=== PATIENT | female | born 1955 | race Caucasian/White ===

== ENCOUNTER 2022-09-06 11:34 | Inpatient (IN) | payer MEDICARE ==
[2022-09-06 13:01] LABS: Basophils % (A) 0 %; Eosinophils # (A) 0.1 k/uL (0-0.7); Eosinophils % (A) 1 %; HCT 36.1 % (34.0-46.0); Lymphocytes # (A) 0.9 k/uL (1.0-4.8); Lymphocytes % (A) 9 %; MCH 31.7 pg (25.0-35.0); MCHC 33.2 g/dL (31.0-37.0); MCV 95.7 fL (80.0-100.0); Mean Platelet Volume 8.1; Monocytes # (A) 0.3 k/uL (0-1.0); Monocytes % (A) 3 %; Neutrophils # (A) 8.4 k/uL (1.3-7.7); Neutrophils % (A) 86 %; Platelet Count 357 k/uL (150-450); RBC 3.77 m/uL (3.80-5.40); RDW 13.1 % (11.5-15.5); WBC 9.9 k/uL (3.8-10.6)
[2022-09-06 13:13] LABS: Albumin 4.5 g/dL (3.5-5.0); Calcium 10.2 mg/dL (8.4-10.2); Potassium 5.3 mmol/L (3.5-5.1); Total Bilirubin 0.8 mg/dL (0.2-1.3); Total Protein 7.7 g/dL (6.3-8.2)
[2022-09-06] MEDS ORDERED: ONDANSETRON 4 MG/2 ML VIAL IVP STA (13:26)
[2022-09-06] MEDS ORDERED: SODIUM CHLORIDE 0.9% 1,000 ML IV STA (13:26)
--- NOTE | 2022-09-06 13:30 | ED ---
General Adult HPI - General Chief complaint: Recheck/Abnormal Lab/Rx Stated complaint: Abnormal Labs,Sent by PCP Time Seen by Provider: 09/06/22 13:12 Source: patient Mode of arrival: wheelchair Limitations: no limitations - History of Present Illness Initial comments: Dictation was produced using [employer] dictation software. please excuse any gramma tical, word or spelling errors. Chief Complaint: 66-year-old female presents emergency department for nausea vomiting and waves of abdominal pain History of Present Illness: Patient is 66-year-old female one month ago she had cold and flulike symptoms causing nausea and vomiting her symptoms improve over the course of several days. Over the last 7 days she states that her symptoms recurred seems like it's worse than initially. She does get waves of severe periumbilical abdominal pain. She has been having dry heaving. She has not been or drinking approximately one week. Patient has history of section. No history of any other abdominal surgeries. She has history of hypertension and thyroid disease. Patient denies any fevers. Denies any diarrhea. States that her emesis is nonbloody and non-bilious. She has a history of chronic back pain. She only has abdominal pain while retching. She denies any abdominal pain at bedside. Patient had blood work drawn 2 days ago by her primary care doctor. Apparently there has been significant abnormalities prompting them to instructed to come to the emergency room. The ROS documented in this emergency department record has been reviewed and confirmed by me. Those systems with pertinent positive or negative responses have been documented in the HPI. All other systems are other negative and/or noncontributory. PHYSICAL EXAM: General Impression: Alert and oriented x3, nauseated HEENT: Normocephalic atraumatic, extra-ocular movements intact, pupils equal and reactive to light bilaterally, mucous membranes moist. Cardiovascular: Heart regular rate and rhythm Chest: Able to complete full sentences, no retractions, no tachypnea Abdomen: abdomen soft, non-tender, non-distended, no organomegaly Musculoskeletal: Pulses present and equal in all extremities, no peripheral edema Motor: no focal deficits noted Neurological: CN II-XII grossly intact, no focal motor or sensory deficits noted Skin: Intact with no visualized rashes Psych: Normal affect and mood ED course: 66-year-old female presents emergency department for nausea, vomiting and abdominal pain. Signs upon arrival shows heart rate 114, rest vital signs within acceptable limits. Patient allegedly had blood work drawn 2 days ago by primary care doctor. Chart review does not show the results of these. According to daughter at the bedside the results are being faxed to our emergency room. Nursing notes and chart review was performed Laboratory evaluation obtained. CBC unremarkable. Metabolic panel shows findings of significantly elevated renal markers. Patient positive for coronavirus. X-ray of the abdomen interpreted by me showing ileus versus enteritis Unclear how long patient's been symptomatic. No indication for antibiotic administration at this time. Patient given IV fluids will be admitted for acute kidney injury. - Related Data Home Medications Medication Instructions Recorded Confirmed HYDROcodone/APAP 10-325MG [[place] 1 tab PO TID 09/06/22 09/06/22 10-325] Levothyroxine Sodium [Synthroid] 112 mcg PO DAILY 09/06/22 09/06/22 Meloxicam [Mobic] 15 mg PO DAILY 09/06/22 09/06/22 Multivitamins, Thera [Multivitamin 1 tab PO DAILY 09/06/22 09/06/22 (formulary)] Ondansetron Odt [Zofran Odt] 4 mg PO Q4H PRN 09/06/22 09/06/22 Triamterene-Hctz 37.5-25Mg 1 cap PO DAILY 09/06/22 09/06/22 [Dyazide 37.5-25 Capsule] lisinopriL [Prinivil] 10 mg PO DAILY 09/06/22 09/06/22 lysine HCL [l-Lysine] 1,000 mg PO DAILY 09/06/22 09/06/22 tiZANidine [Zanaflex] 4 mg PO TID PRN 09/06/22 09/06/22 Allergies Allergy/AdvReac Type Severity Reaction Status Date / Time codeine Allergy Abdominal Verified 09/06/22 14:43 Pain sulfamethoxazole Allergy Rash/Hives Verified 09/06/22 14:43 [From Bactrim] trimethoprim [From Bactrim] Allergy Rash/Hives Verified 09/06/22 14:43 Review of Systems ROS Statement: Those systems with pertinent positive or pertinent negative responses have been documented in the HPI. ROS Other: All systems not noted in ROS Statement are negative. Past Medical History Past Medical History: Hypertension, Osteoarthritis (OA), Thyroid Disorder Additional Past Medical History / Comment(s): chronic back pain History of Any Multi-Drug Resistant Organisms: None Reported Past Surgical History: Section, Orthopedic Surgery Additional Past Surgical History / Comment(s): left knee repair; thyroid removed Past Psychological History: No Psychological Hx Reported Smoking Status: Never smoker Past Alcohol Use History: None Reported Past Drug Use History: None Reported General Exam Limitations: no limitations Course Vital Signs 09/06/22 11:56 Temperature 98.1 F Pulse Rate 114 H Respiratory 14 Rate Blood Pressure 107/55 O2 Sat by Pulse 96 Oximetry Medical Decision Making - Lab Data Result diagrams: 09/06/22 13:24 09/06/22 13:24 Lab Results 09/06/22 09/06/22 09/06/22 Range/Units 12:53 12:53 13:24 WBC 9.9 10.3 (3.8-10.6) k/uL RBC 3.77 L 3.80 (3.80-5.40) m/uL Hgb 12.0 12.1 (11.4-16.0) gm/dL Hct 36.1 36.5 (34.0-46.0) % MCV 95.7 95.8 (80.0-100.0) fL MCH 31.7 31.7 (25.0-35.0) pg MCHC 33.2 33.1 (31.0-37.0) g/dL RDW 13.1 12.8 (11.5-15.5) % Plt Count 357 390 (150-450) k/uL MPV 8.1 7.5 Neutrophils % 86 83 % Lymphocytes % 9 12 % Monocytes % 3 3 % Eosinophils % 1 0 % Basophils % 0 0 % Neutrophils # 8.4 H 8.5 H (1.3-7.7) k/uL Lymphocytes # 0.9 L 1.3 (1.0-4.8) k/uL Monocytes # 0.3 0.3 (0-1.0) k/uL Eosinophils # 0.1 0.0 (0-0.7) k/uL Basophils # 0.0 0.0 (0-0.2) k/uL PT (9.0-12.0) sec INR (<1.2) APTT (22.0-30.0) sec Sodium 141 (137-145) mmol/L Potassium 5.3 H (3.5-5.1) mmol/L Chloride 104 (98-107) mmol/L Carbon Dioxide 17 L (22-30) mmol/L Anion Gap 20 mmol/L BUN 83 H (7-17) mg/dL Creatinine 3.32 H (0.52-1.04) mg/dL Est GFR (CKD-EPI)AfAm 16 (>60 ml/min/1.73 sqM) Est GFR (CKD-EPI)NonAf 14 (>60 ml/min/1.73 sqM) Glucose 101 H (74-99) mg/dL Plasma Lactic Acid Angelito (0.7-2.0) mmol/L Calcium 10.2 (8.4-10.2) mg/dL Magnesium (1.6-2.3) mg/dL Total Bilirubin 0.8 (0.2-1.3) mg/dL AST 20 (14-36) U/L ALT 12 (4-34) U/L Alkaline Phosphatase 166 H (38-126) U/L Total Protein 7.7 (6.3-8.2) g/dL Albumin 4.5 (3.5-5.0) g/dL Amylase 96 (30-110) U/L Lipase 350 H (23-300) U/L Influenza Type A (PCR) (Not Detectd) Influenza Type B (PCR) (Not Detectd) RSV (PCR) (Not Detectd) SARS-CoV-2 (PCR) (Not Detectd) 09/06/22 09/06/22 09/06/22 Range/Units 13:24 13:39 13:39 WBC (3.8-10.6) k/uL RBC (3.80-5.40) m/uL Hgb (11.4-16.0) gm/dL Hct (34.0-46.0) % MCV (80.0-100.0) fL MCH (25.0-35.0) pg MCHC (31.0-37.0) g/dL RDW (11.5-15.5) % Plt Count (150-450) k/uL MPV Neutrophils % % Lymphocytes % % Monocytes % % Eosinophils % % Basophils % % Neutrophils # (1.3-7.7) k/uL Lymphocytes # (1.0-4.8) k/uL Monocytes # (0-1.0) k/uL Eosinophils # (0-0.7) k/uL Basophils # (0-0.2) k/uL PT 10.8 (9.0-12.0) sec INR 1.0 (<1.2) APTT 23.1 (22.0-30.0) sec Sodium 140 (137-145) mmol/L Potassium 5.2 H (3.5-5.1) mmol/L Chloride 104 (98-107) mmol/L Carbon Dioxide 16 L (22-30) mmol/L Anion Gap 20 mmol/L BUN 83 H (7-17) mg/dL Creatinine 3.40 H (0.52-1.04) mg/dL Est GFR (CKD-EPI)AfAm 15 (>60 ml/min/1.73 sqM) Est GFR (CKD-EPI)NonAf 13 (>60 ml/min/1.73 sqM) Glucose 106 H (74-99) mg/dL Plasma Lactic Acid Angelito 1.4 (0.7-2.0) mmol/L Calcium 10.1 (8.4-10.2) mg/dL Magnesium 2.3 (1.6-2.3) mg/dL Total Bilirubin 0.7 (0.2-1.3) mg/dL AST 19 (14-36) U/L ALT 12 (4-34) U/L Alkaline Phosphatase 161 H (38-126) U/L Total Protein 7.5 (6.3-8.2) g/dL Albumin 4.3 (3.5-5.0) g/dL Amylase (30-110) U/L Lipase (23-300) U/L Influenza Type A (PCR) (Not Detectd) Influenza Type B (PCR) (Not Detectd) RSV (PCR) (Not Detectd) SARS-CoV-2 (PCR) (Not Detectd) 09/06/22 Range/Units 13:39 WBC (3.8-10.6) k/uL RBC (3.80-5.40) m/uL Hgb (11.4-16.0) gm/dL Hct (34.0-46.0) % MCV (80.0-100.0) fL MCH (25.0-35.0) pg MCHC (31.0-37.0) g/dL RDW (11.5-15.5) % Plt Count (150-450) k/uL MPV Neutrophils % % Lymphocytes % % Monocytes % % Eosinophils % % Basophils % % Neutrophils # (1.3-7.7) k/uL Lymphocytes # (1.0-4.8) k/uL Monocytes # (0-1.0) k/uL Eosinophils # (0-0.7) k/uL Basophils # (0-0.2) k/uL PT (9.0-12.0) sec INR (<1.2) APTT (22.0-30.0) sec Sodium (137-145) mmol/L Potassium (3.5-5.1) mmol/L Chloride (98-107) mmol/L Carbon Dioxide (22-30) mmol/L Anion Gap mmol/L BUN (7-17) mg/dL Creatinine (0.52-1.04) mg/dL Est GFR (CKD-EPI)AfAm (>60 ml/min/1.73 sqM) Est GFR (CKD-EPI)NonAf (>60 ml/min/1.73 sqM) Glucose (74-99) mg/dL Plasma Lactic Acid Angelito (0.7-2.0) mmol/L Calcium (8.4-10.2) mg/dL Magnesium (1.6-2.3) mg/dL Total Bilirubin (0.2-1.3) mg/dL AST (14-36) U/L ALT (4-34) U/L Alkaline Phosphatase (38-126) U/L Total Protein (6.3-8.2) g/dL Albumin (3.5-5.0) g/dL Amylase (30-110) U/L Lipase (23-300) U/L Influenza Type A (PCR) Not Detected (Not Detectd) Influenza Type B (PCR) Not Detected (Not Detectd) RSV (PCR) Not Detected (Not Detectd) SARS-CoV-2 (PCR) Detected A (Not Detectd) Disposition Clinical Impression: DORI (acute kidney injury), Coronavirus infection Disposition: ADMITTED IP TO THIS HOSP Condition: Fair Referrals: Nonstaff,Physician [REFERRING] - 1-2 days Decision Time: 14:57
[2022-09-06 13:48] LABS: Basophils % (A) 0 %; Eosinophils % (A) 0 %; HCT 36.5 % (34.0-46.0); HGB 12.1 gm/dL (11.4-16.0); Lymphocytes # (A) 1.3 k/uL (1.0-4.8); Lymphocytes % (A) 12 %; MCH 31.7 pg (25.0-35.0); MCHC 33.1 g/dL (31.0-37.0); MCV 95.8 fL (80.0-100.0); Mean Platelet Volume 7.5; Monocytes # (A) 0.3 k/uL (0-1.0); Monocytes % (A) 3 %; Neutrophils # (A) 8.5 k/uL (1.3-7.7); Neutrophils % (A) 83 %; Platelet Count 390 k/uL (150-450); RDW 12.8 % (11.5-15.5); WBC 10.3 k/uL (3.8-10.6)
[2022-09-06 14:00] LABS: Partial Thromboplastin Time 23.1 sec (22.0-30.0); Prothrombin Time 10.8 sec (9.0-12.0)
--- NOTE | 2022-09-06 14:07 | XR ---
EXAMINATION TYPE: XR abdomen 1V DATE OF EXAM: 09/06/2022 COMPARISON: NONE HISTORY: Abdominal pain TECHNIQUE: One view abdominal series FINDINGS: The osseous structures are intact. The bowel gas pattern is nonspecific. Lung bases are clear. Scol iosis with degenerative and hypertrophic changes. Severe arthropathy bilateral hip correlation for fe moral acetabular impingement. Few prominent small bowel loops are seen in the midabdomen. IMPRESSION: 1. Nonspecific abdomen. Couple prominent small bowel loops with air-fluid level midabdomen can be as sociated with an ileus or enteritis correlate clinically.
[2022-09-06 14:33] LABS: Albumin 4.3 g/dL (3.5-5.0); Calcium 10.1 mg/dL (8.4-10.2); Magnesium 2.3 mg/dL (1.6-2.3); Potassium 5.2 mmol/L (3.5-5.1); Total Bilirubin 0.7 mg/dL (0.2-1.3); Total Protein 7.5 g/dL (6.3-8.2)
[2022-09-06] MEDS ORDERED: NALOXONE 0.4 MG/ML 1 ML VIAL IV PRN (14:57)
[2022-09-06] MEDS ORDERED: ACETAMINOPHEN TAB 325 MG TAB PO PRN (14:57)
[2022-09-06] MEDS ORDERED: CALCIUM CARBONATE 500 MG CHEWABLE PO PRN (18:30)
[2022-09-06] MEDS: SODIUM CHLORIDE 0.9% 1,000 ML IV SCH ×2 (18:53→20:48)
[2022-09-06] MEDS: ONDANSETRON ODT 4 MG TAB PO PRN (19:13)
[2022-09-06] MEDS: HYDROcodone/APAP 10-325MG 1 EACH TAB PO SCH (19:14)
[2022-09-06] MEDS ORDERED: HYDROmorphone 0.5 MG/0.5 ML SYRINGE IVP PRN (19:17)
[2022-09-06] MEDS: tiZANidine 4 MG TAB PO PRN (20:48)
--- NOTE | 2022-09-06 22:48 | P.HPIM ---
History of Present Illness H&P Date: 09/06/22 Chief Complaint: Weak This is a pleasant 66-year-old patient who follows with Dr. Oliva chronic stable medical conditions include hypertension, osteoporosis, low back pain, hypothyroid. About 3 weeks ago patient and her both had flu. She normally takes a bit longer to cover. She called back to normal. He started eating better. About 10 days ago she started getting nauseated did have a big part of vomiting. He progressively got able to keep anything down. Becoming weak diet rather exhausted. Finally decided to come in. Had blood work done at her PCPs office. Kidney function was off. No fever no chills. Review of systems: GEN.: Tired weak decreased appetite EYES: None HEENT: None NECK: None RESPIRATORY: None CARDIOVASCULAR: None GASTROINTESTINAL: As above GENITOURINARY: None MUSCULOSKELETAL: Back pain LYMPHATICS: None HEMATOLOGICAL: None PSYCHIATRY: None NEUROLOGICAL: None Past medical history to include: Hypertension, osteomyelitis, hypothyroid, low back pain Social history: No smoking or alcohol. . Family history: Reviewed, noncontributory to presentation Physical examination: VITAL SIGNS: 37.5, 114, 18, 110/63, 100% room air GENERAL: BMI 43.8, declining bed, awake, tired. EYES: Pupils equal. Conjunctiva normal. HEENT: External appearance of nose and ears normal, oral cavity grossly normal. NECK: JVD not raised; masses not palpable. HEART: First and second heart sounds are normal; no edema. LUNGS: Respiratory rate normal; clear to auscultation. ABDOMEN: Soft, nontender, liver spleen not palpable, no masses palpable. PSYCH: Alert and oriented x3; mood and affect normal. MUSCULOSKELETAL:No Clubbing/cyanosis;muscles-grossly intact. OA NEUROLOGICAL: Cranial nerves grossly intact; no facial asymmetry, power and sensation grossly intact. LYMPHATICS: No lymph nodes palpable in the axilla and neck INVESTIGATIONS, reviewed in the clinical context: White count 10.3 hemoglobin 12.1 platelets 390 potassium 5.2 BUN 83 creatinine 3.4 COVID 19 PCR: Detected Abdominal x-ray: Nonspecific abdomen. Assessment plan: -Acute kidney injury, likely ATN/prerenal from recent infections and decreased oral intake. IV fluids. -Metabolic acidosis from kidney injury Sodium bicarbonate by mouth -Persistent nausea likely from acute kidney injury -Morbid obesity BMI 43.8 Weight loss measures -Essential hypertension, currently blood pressure lower side. Hold Prinivil. Hold diuretics. -Hypothyroid Synthroid 112 g -Primary osteomyelitis multiple joints Currently patient not able to keep down her [place]. Use Dilaudid when necessary. IV fluids. Sodium bicarbonate. Subcu Lovenox. UA. Renal ultrasound. Full liquid diet/renal diet. Repeat labs in the morning. Discussed with patient. Past Medical History Past Medical History: Hypertension, Osteoarthritis (OA), Thyroid Disorder Additional Past Medical History / Comment(s): chronic back pain History of Any Multi-Drug Resistant Organisms: None Reported Past Surgical History: Section, Orthopedic Surgery Additional Past Surgical History / Comment(s): left knee repair; thyroid removed Past Psychological History: No Psychological Hx Reported Smoking Status: Never smoker Past Alcohol Use History: None Reported Past Drug Use History: None Reported - Past Family History Father Family Medical History: No Reported History Medications and Allergies Home Medications Medication Instructions Recorded Confirmed Type HYDROcodone/APAP 10-325MG [[place] 1 tab PO TID 09/06/22 09/06/22 History 10-325] Levothyroxine Sodium [Synthroid] 112 mcg PO DAILY 09/06/22 09/06/22 History Meloxicam [Mobic] 15 mg PO DAILY 09/06/22 09/06/22 History Multivitamins, Thera [Multivitamin 1 tab PO DAILY 09/06/22 09/06/22 History (formulary)] Ondansetron Odt [Zofran Odt] 4 mg PO Q4H PRN 09/06/22 09/06/22 History Triamterene-Hctz 37.5-25Mg 1 cap PO DAILY 09/06/22 09/06/22 History [Dyazide 37.5-25 Capsule] lisinopriL [Prinivil] 10 mg PO DAILY 09/06/22 09/06/22 History lysine HCL [l-Lysine] 1,000 mg PO DAILY 09/06/22 09/06/22 History tiZANidine [Zanaflex] 4 mg PO TID PRN 09/06/22 09/06/22 History Allergies Allergy/AdvReac Type Severity Reaction Status Date / Time codeine Allergy Abdominal Verified 09/06/22 14:43 Pain sulfamethoxazole Allergy Rash/Hives Verified 09/06/22 14:43 [From Bactrim] trimethoprim [From Bactrim] Allergy Rash/Hives Verified 09/06/22 14:43 Physical Exam Vitals: Vital Signs Temp Pulse Pulse Resp BP BP Pulse Ox 09/06/22 19:50 98.1 F 107 H 16 108/62 95 09/06/22 18:19 97.5 F L 104 H 18 110/63 100 09/06/22 17:39 103 H 18 133/50 97 09/06/22 11:56 98.1 F 114 H 14 107/55 96 Intake and Output 09/06/22 09/06/22 09/06/22 06:59 14:59 22:59 Other: Weight 112.037 kg 112.037 kg Results CBC & Chem 7: 09/06/22 13:24 09/06/22 13:24 Labs: Abnormal Lab Results - Last 24 Hours (Table) 09/06/22 09/06/22 09/06/22 Range/Units 12:53 12:53 13:24 RBC 3.77 L (3.80-5.40) m/uL Neutrophils # 8.4 H 8.5 H (1.3-7.7) k/uL Lymphocytes # 0.9 L (1.0-4.8) k/uL Potassium 5.3 H (3.5-5.1) mmol/L Carbon Dioxide 17 L (22-30) mmol/L BUN 83 H (7-17) mg/dL Creatinine 3.32 H (0.52-1.04) mg/dL Glucose 101 H (74-99) mg/dL Alkaline Phosphatase 166 H (38-126) U/L Lipase 350 H (23-300) U/L SARS-CoV-2 (PCR) (Not Detectd) 09/06/22 09/06/22 Range/Units 13:24 13:39 RBC (3.80-5.40) m/uL Neutrophils # (1.3-7.7) k/uL Lymphocytes # (1.0-4.8) k/uL Potassium 5.2 H (3.5-5.1) mmol/L Carbon Dioxide 16 L (22-30) mmol/L BUN 83 H (7-17) mg/dL Creatinine 3.40 H (0.52-1.04) mg/dL Glucose 106 H (74-99) mg/dL Alkaline Phosphatase 161 H (38-126) U/L Lipase (23-300) U/L SARS-CoV-2 (PCR) Detected A (Not Detectd) Thrombosis Risk Factor Assmnt - Choose All That Apply Any of the Below Risk Factors Present?: Yes Each Factor Represents 1 point: Obesity (BMI >25) Other Risk Factors: Yes Each Risk Factor Represents 2 Points: Age 61-74 years Each Risk Factor Represents 3 Points: Family history of DVT/PE Other congenital or acquired thrombophilia - If yes, enter type in comment: No Thrombosis Risk Factor Assessment Total Risk Factor Score: 6 Thrombosis Risk Factor Assessment Level: High Risk
[2022-09-07] MEDS: SODIUM BICARBONATE TAB 650 MG TAB PO SCH ×4 (01:44→21:15)
[2022-09-07] MEDS: HYDROcodone/APAP 10-325MG 1 EACH TAB PO SCH ×4 (01:44→21:15)
[2022-09-07] MEDS: LEVOTHYROXINE 112 MCG TAB PO SCH (05:53)
[2022-09-07 06:46] LABS: African American GFR (CKD) 22 (>60 ml/min/1.73 sqM); Anion Gap 13 mmol/L; Blood Urea Nitrogen 75 mg/dL (7-17); Carbon Dioxide 18 mmol/L (22-30); Chloride 111 mmol/L (98-107); Glucose 86 mg/dL (74-99); Non-African American GFR(CKD) 19 (>60 ml/min/1.73 sqM); Potassium 4.6 mmol/L (3.5-5.1); Sodium 142 mmol/L (137-145)
[2022-09-07] MEDS ORDERED: NON FORMULARY DRUG (Meloxicam [Mobic] 15 MG Tablet) PO SCH (09:00)
[2022-09-07] MEDS ORDERED: ENOXAPARIN 40 MG/0.4 ML SYRINGE SQ SCH (09:00)
[2022-09-07] MEDS ORDERED: lisinopriL 10 MG TAB PO SCH (09:00)
[2022-09-07] MEDS: SODIUM CHLORIDE 0.9% 1,000 ML IV SCH ×2 (09:11→16:50)
[2022-09-07] MEDS: NON FORMULARY DRUG (Lysine Hcl [L-Lysine] 1,000 MG Tablet) PO SCH (09:11)
[2022-09-07] MEDS: MULTIVITAMINS, THERA 1 EACH TAB PO SCH (09:12)
[2022-09-07] MEDS: tiZANidine 4 MG TAB PO PRN ×3 (09:17→21:31)
--- NOTE | 2022-09-07 09:25 | US ---
EXAMINATION TYPE: US kidneys/renal and bladder DATE OF EXAM: 09/07/2022 COMPARISON: NONE CLINICAL HISTORY: Evaluate for CKD. EXAM MEASUREMENTS: Right Kidney: 9.1 x 4.3 x 4.3 cm Left Kidney: 8.2 x 4.9 x 4.2 cm Right Kidney: wnl Left Kidney: Slightly below limits of normal for size. Bladder: wnl Bilateral Jets seen: Yes There is no evidence for hydronephrosis at this point in time. No nephrolithiasis is seen. No gloria s are identified. The urinary bladder is anechoic. Bilateral ureteral jets are seen. IMPRESSION: Renal parenchymal thinning noted.
[2022-09-07 10:19] LABS: Appearance,Urine Cloudy (Clear); Bacteria,Urine Many /hpf; Bilirubin,Urine Negative (Negative); Blood,Urine Trace (Negative); Color,Urine Yellow; Glucose,Urine (UA) Negative (Negative); Hyaline Casts,Urine 5 /lpf (0-2); Ketones,Urine 1+ (Negative); Leukocyte Esterase,Urine Large (Negative); Mucus,Urine Rare /hpf; Nitrite,Urine Negative (Negative); Protein,Urine Trace (Negative); RBC,Urine 31 /hpf (0-5); Specific Gravity,Urine 1.017 (1.001-1.035); Squamous Epithelial Cell,Urine 1 /hpf (0-4); Urobilinogen,Urine <2.0 mg/dL (<2.0); WBC,Urine 179 /hpf (0-5)
--- NOTE | 2022-09-07 15:54 | P.PN ---
Progress Note - Text Progress Note Date: 09/07/22 Chief Complaint: Weak This is a pleasant 66-year-old patient who follows with Dr. Oliva chronic stable medical conditions include hypertension, osteoporosis, low back pain, hypothyroid. About 3 weeks ago patient and her both had flu. She normally takes a bit longer to cover. She called back to normal. He started eating better. About 10 days ago she started getting nauseated did have a big part of vomiting. He progressively got able to keep anything down. Becoming weak diet rather exhausted. Finally decided to come in. Had blood work done at her PCPs office. Kidney function was off. No fever no chills. Admitted with COVID-19 causing GI symptoms especially nausea vomiting. Dyspepsia. Acute kidney injury. Started on a light diet and IV fluids. 09/07/2022: Eating somewhat. Getting IV fluids. Kidney function slowly improving. Did get of the bathroom. Up in a chair. Discussed. Active Medications Acetaminophen (Acetaminophen Tab 325 Mg Tab) 650 mg PO Q6HR PRN PRN Reason: Mild Pain or Fever > 100.5 Hydrocodone Bitart/Acetaminophen (Hydrocodone/Apap 10-325mg 1 Each Tab) 1 each PO TID [facility] Last Admin: 09/07/22 09:12 Dose: 1 each Calcium Carbonate/Glycine (Calcium Carbonate 500 Mg Chewable) 1,000 mg PO Q4HR PRN PRN Reason: Dyspepsia Enoxaparin Sodium (Enoxaparin 30 Mg/0.3 Ml Syringe) 30 mg SQ DAILY [facility] Hydromorphone HCl (Hydromorphone 0.5 Mg/0.5 Ml Syringe) 0.5 mg IVP Q6HR PRN PRN Reason: Pain Last Admin: 09/07/22 04:48 Dose: 0.5 mg Sodium Chloride (Saline 0.9%) 1,000 mls @ 130 mls/hr IV .[id number] [facility] Last Admin: 09/07/22 09:11 Dose: 130 mls/hr Levothyroxine Sodium (Levothyroxine 112 Mcg Tab) 112 mcg PO DAILY@0630 [facility] Last Admin: 09/07/22 05:53 Dose: Not Given Multivitamins (Multivitamins, Thera 1 Each Tab) 1 each PO DAILY [facility] Last Admin: 09/07/22 09:12 Dose: 1 each Naloxone HCl (Naloxone 0.4 Mg/Ml 1 Ml Vial) 0.2 mg IV Q2M PRN PRN Reason: Opioid Reversal Non-Formulary Medication (Lysine Hcl [L-Lysine]) 1,000 mg PO DAILY [facility] Last Admin: 09/07/22 09:11 Dose: Not Given Ondansetron HCl (Ondansetron Odt 4 Mg Tab) 4 mg PO Q4H PRN PRN Reason: Nausea Last Admin: 09/06/22 19:13 Dose: 4 mg Sodium Bicarbonate (Sodium Bicarbonate Tab 650 Mg Tab) 650 mg PO TID [facility] Last Admin: 09/07/22 09:12 Dose: 650 mg Tizanidine HCl (Tizanidine 4 Mg Tab) 4 mg PO TID PRN PRN Reason: Muscle Spasm Last Admin: 09/07/22 09:17 Dose: 4 mg Past medical history to include: Hypertension, osteomyelitis, hypothyroid, low back pain Social history: No smoking or alcohol. . Family history: Reviewed, noncontributory to presentation Physical examination: VITAL SIGNS: 97.6, 91, 18, 104/63, 97% room air GENERAL: Up in a recliner, looking a bit better EYES: Pupils equal. Conjunctiva normal. HEENT: External appearance of nose and ears normal, oral cavity grossly normal. NECK: JVD not raised; masses not palpable. HEART: First and second heart sounds are normal; no edema. LUNGS: Respiratory rate normal; clear to auscultation. ABDOMEN: Soft, nontender, liver spleen not palpable, no masses palpable. PSYCH: Alert and oriented x3; mood and affect normal. MUSCULOSKELETAL:No Clubbing/cyanosis;muscles-grossly intact. OA INVESTIGATIONS, reviewed in the clinical context: Renal ultrasound: Left kidney slightly below limits of normal for size. UA: Negative for nitrite. Positive leukoesterase. WBC. Bacteria many. 09/07/2022: Potassium 4.6 BUN 75 creatinine 2.51 White count 10.3 hemoglobin 12.1 platelets 390 potassium 5.2 BUN 83 creatinine 3.4 COVID 19 PCR: Detected Abdominal x-ray: Nonspecific abdomen. Assessment plan: -Acute kidney injury, likely ATN/prerenal from recent infections and decreased oral intake: Slow to respond. IV fluids. -Metabolic acidosis from kidney injury Sodium bicarbonate by mouth -Acute UTI with cystitis IV ceftriaxone -Persistent nausea likely from acute kidney injury: Improving -Morbid obesity BMI 43.8 Weight loss measures -Essential hypertension, currently blood pressure lower side. Hold Prinivil. Hold diuretics. -Hypothyroid Synthroid 112 g -Primary osteomyelitis multiple joints Currently patient not able to keep down her [place]. Use Dilaudid when necessary. IV fluids. Sodium bicarbonate. Subcu Lovenox. UA. Renal ultrasound. Full liquid diet/renal diet. Repeat labs in the morning. Discussed with patient.
[2022-09-08] MEDS: LEVOTHYROXINE 112 MCG TAB PO SCH ×2 (06:55→06:56)
[2022-09-08 07:54] LABS: African American GFR (CKD) 49 (>60 ml/min/1.73 sqM); Anion Gap 7 mmol/L; Blood Urea Nitrogen 44 mg/dL (7-17); Calcium 8.4 mg/dL (8.4-10.2); Carbon Dioxide 23 mmol/L (22-30); Chloride 109 mmol/L (98-107); Glucose 95 mg/dL (74-99); Non-African American GFR(CKD) 43 (>60 ml/min/1.73 sqM); Potassium 4.2 mmol/L (3.5-5.1); Sodium 139 mmol/L (137-145)
[2022-09-08] MEDS: MULTIVITAMINS, THERA 1 EACH TAB PO SCH (08:17)
[2022-09-08] MEDS: HYDROcodone/APAP 10-325MG 1 EACH TAB PO SCH ×3 (08:17→23:41)
[2022-09-08] MEDS: tiZANidine 4 MG TAB PO PRN ×3 (08:17→23:42)
[2022-09-08] MEDS: SODIUM BICARBONATE TAB 650 MG TAB PO SCH ×3 (08:17→23:41)
[2022-09-08] MEDS: ONDANSETRON ODT 4 MG TAB PO PRN ×2 (08:22→16:04)
[2022-09-08] MEDS ORDERED: ENOXAPARIN 30 MG/0.3 ML SYRINGE SQ SCH (09:00)
[2022-09-08] MEDS: SODIUM CHLORIDE 0.9% 1,000 ML IV SCH ×2 (13:12→16:00)
[2022-09-08] MEDS: NON FORMULARY DRUG (Lysine Hcl [L-Lysine] 1,000 MG Tablet) PO SCH (13:13)
--- NOTE | 2022-09-08 22:42 | P.PN ---
Progress Note - Text Progress Note Date: 09/08/22 Chief Complaint: Weak This is a pleasant 66-year-old patient who follows with Dr. Oliva chronic stable medical conditions include hypertension, osteoporosis, low back pain, hypothyroid. About 3 weeks ago patient and her both had flu. She normally takes a bit longer to cover. She called back to normal. He started eating better. About 10 days ago she started getting nauseated did have a big part of vomiting. He progressively got able to keep anything down. Becoming weak diet rather exhausted. Finally decided to come in. Had blood work done at her PCPs office. Kidney function was off. No fever no chills. Admitted with COVID-19 causing GI symptoms especially nausea vomiting. Dyspepsia. Acute kidney injury. Started on a light diet and IV fluids. 09/07/2022: Eating somewhat. Getting IV fluids. Kidney function slowly improving. Did get of the bathroom. Up in a chair. Discussed. 09/08/2022: Tolerating a liquid diet. Diet being advanced. Creatinine improving. IV fluids cutback. We will have a right tomorrow to go home. Discussed. Active Medications Acetaminophen (Acetaminophen Tab 325 Mg Tab) 650 mg PO Q6HR PRN PRN Reason: Mild Pain or Fever > 100.5 Hydrocodone Bitart/Acetaminophen (Hydrocodone/Apap 10-325mg 1 Each Tab) 1 each PO TID [facility] Last Admin: 09/08/22 15:59 Dose: 1 each Calcium Carbonate/Glycine (Calcium Carbonate 500 Mg Chewable) 1,000 mg PO Q4HR PRN PRN Reason: Dyspepsia Enoxaparin Sodium (Enoxaparin 40 Mg/0.4 Ml Syringe) 40 mg SQ DAILY [facility] Hydromorphone HCl (Hydromorphone 0.5 Mg/0.5 Ml Syringe) 0.5 mg IVP Q6HR PRN PRN Reason: Pain Last Admin: 09/07/22 04:48 Dose: 0.5 mg Sodium Chloride (Saline 0.9%) 1,000 mls @ 130 mls/hr IV .Q7H42M [facility] Last Admin: 09/08/22 16:00 Dose: 130 mls/hr Ceftriaxone Sodium 1 gm/ (Sodium Chloride) 50 mls @ 100 mls/hr IVPB Q24H [facility]; Protocol Last Admin: 09/08/22 15:59 Dose: 100 mls/hr Levothyroxine Sodium (Levothyroxine 112 Mcg Tab) 112 mcg PO DAILY@0630 [facility] Last Admin: 09/08/22 06:56 Dose: Not Given Multivitamins (Multivitamins, Thera 1 Each Tab) 1 each PO DAILY [facility] Last Admin: 09/08/22 08:17 Dose: 1 each Naloxone HCl (Naloxone 0.4 Mg/Ml 1 Ml Vial) 0.2 mg IV Q2M PRN PRN Reason: Opioid Reversal Non-Formulary Medication (Lysine Hcl [L-Lysine]) 1,000 mg PO DAILY [facility] Last Admin: 09/08/22 13:13 Dose: Not Given Ondansetron HCl (Ondansetron Odt 4 Mg Tab) 4 mg PO Q4H PRN PRN Reason: Nausea Last Admin: 09/08/22 16:04 Dose: 4 mg Sodium Bicarbonate (Sodium Bicarbonate Tab 650 Mg Tab) 650 mg PO TID [facility] Last Admin: 09/08/22 16:00 Dose: 650 mg Tizanidine HCl (Tizanidine 4 Mg Tab) 4 mg PO TID PRN PRN Reason: Muscle Spasm Last Admin: 09/08/22 15:59 Dose: 4 mg Past medical history to include: Hypertension, osteomyelitis, hypothyroid, low back pain Social history: No smoking or alcohol. . Family history: Reviewed, noncontributory to presentation Physical examination: VITAL SIGNS: 98.5, 65, 17, 115/72, 100% room air GENERAL: Up in a chair, doing better EYES: Pupils equal. Conjunctiva normal. HEENT: External appearance of nose and ears normal, oral cavity grossly normal. NECK: JVD not raised; masses not palpable. HEART: First and second heart sounds are normal; no edema. LUNGS: Respiratory rate normal; clear to auscultation. ABDOMEN: Soft, nontender, liver spleen not palpable, no masses palpable. PSYCH: Alert and oriented x3; mood and affect normal. MUSCULOSKELETAL:No Clubbing/cyanosis;muscles-grossly intact. OA INVESTIGATIONS, reviewed in the clinical context: 09/08/2022: Potassium 4.2 BUN 44 creatinine 1.30 Renal ultrasound: Left kidney slightly below limits of normal for size. UA: Negative for nitrite. Positive leukoesterase. WBC. Bacteria many. 09/07/2022: Potassium 4.6 BUN 75 creatinine 2.51 White count 10.3 hemoglobin 12.1 platelets 390 potassium 5.2 BUN 83 creatinine 3.4 COVID 19 PCR: Detected Abdominal x-ray: Nonspecific abdomen. Assessment plan: -Acute kidney injury, likely ATN/prerenal from recent infections and decreased oral intake: Improving IV fluids. -Metabolic acidosis from kidney injury Sodium bicarbonate by mouth -Acute UTI with cystitis IV ceftriaxone -Persistent nausea likely from acute kidney injury: Improving -Morbid obesity BMI 43.8 Weight loss measures -Essential hypertension, currently blood pressure lower side. Hold Prinivil. Hold diuretics. -Hypothyroid Synthroid 112 g -Primary osteomyelitis multiple joints Currently patient not able to keep down her Romeo. Use Dilaudid when necessary. IV fluids. Sodium bicarbonate. Subcu Lovenox. Advance diet. Doing better. Plan to discharge home tomorrow.
[2022-09-09] MEDS: LEVOTHYROXINE 112 MCG TAB PO SCH (06:11)
[2022-09-09] MEDS: SODIUM CHLORIDE 0.9% 1,000 ML IV SCH (06:48)
[2022-09-09 07:05] LABS: African American GFR (CKD) 63 (>60 ml/min/1.73 sqM); Anion Gap 4 mmol/L; Blood Urea Nitrogen 27 mg/dL (7-17); Calcium 8.1 mg/dL (8.4-10.2); Carbon Dioxide 25 mmol/L (22-30); Chloride 108 mmol/L (98-107); Glucose 92 mg/dL (74-99); Non-African American GFR(CKD) 55 (>60 ml/min/1.73 sqM); Potassium 3.9 mmol/L (3.5-5.1); Sodium 137 mmol/L (137-145)
[2022-09-09] MEDS: ONDANSETRON ODT 4 MG TAB PO PRN (08:54)
[2022-09-09] MEDS: HYDROcodone/APAP 10-325MG 1 EACH TAB PO SCH (08:56)
[2022-09-09] MEDS: tiZANidine 4 MG TAB PO PRN (08:57)
[2022-09-09] MEDS: MULTIVITAMINS, THERA 1 EACH TAB PO SCH (08:57)
[2022-09-09] MEDS: SODIUM BICARBONATE TAB 650 MG TAB PO SCH (08:57)
[2022-09-09] MEDS: NON FORMULARY DRUG (Lysine Hcl [L-Lysine] 1,000 MG Tablet) PO SCH (08:58)
[2022-09-09] MEDS ORDERED: ENOXAPARIN 40 MG/0.4 ML SYRINGE SQ SCH (09:00)
[2022-09-09 09:20] VITALS: BP 102/66; PULSE 79; RESP 17; TEMP 97.6
--- NOTE | 2022-09-09 16:29 | P.DS ---
Providers Date of admission: 09/06/22 14:58 Expected date of discharge: 09/09/22 Attending physician: Christopher Naidu Primary care physician: Baljinder Oliva [facility] Course: Chief Complaint: Weak This is a pleasant 66-year-old patient who follows with Dr. Oliva chronic stable medical conditions include hypertension, osteoporosis, low back pain, hypothyroid. About 3 weeks ago patient and her both had flu. She normally takes a bit longer to cover. She called back to normal. He started eating better. About 10 days ago she started getting nauseated did have a big part of vomiting. He progressively got able to keep anything down. Becoming weak diet rather exhausted. Finally decided to come in. Had blood work done at her PCPs office. Kidney function was off. No fever no chills. Admitted with COVID-19 causing GI symptoms especially nausea vomiting. Dyspepsia. Acute kidney injury. Started on a light diet and IV fluids. 09/07/2022: Eating somewhat. Getting IV fluids. Kidney function slowly improving. Did get of the bathroom. Up in a chair. Discussed. 09/08/2022: Tolerating a liquid diet. Diet being advanced. Creatinine improving. IV fluids cutback. We will have a right tomorrow to go home. Discussed. 09/09/2022: Doing well. Tolerated diet. Care was discussed in detail. Blood pressure is lower side. Continue to hold Prinivil. Also will restart the diuretics. BMP next week. Follow-up with PCP. Discussion and discharge planning more than 35 minutes Past medical history to include: Hypertension, osteomyelitis, hypothyroid, low back pain Social history: No smoking or alcohol. . Family history: Reviewed, noncontributory to presentation Physical examination: VITAL SIGNS: 97.6, 79, 17, 102/. 66, 98% room air GENERAL: Up in a chair, comfortable EYES: Pupils equal. Conjunctiva normal. HEENT: External appearance of nose and ears normal, oral cavity grossly normal. NECK: JVD not raised; masses not palpable. HEART: First and second heart sounds are normal; no edema. LUNGS: Respiratory rate normal; clear to auscultation. ABDOMEN: Soft, nontender, liver spleen not palpable, no masses palpable. PSYCH: Alert and oriented x3; mood and affect normal. MUSCULOSKELETAL:No Clubbing/cyanosis;muscles-grossly intact. OA INVESTIGATIONS, reviewed in the clinical context: 09/09/2022: Potassium 3.9 creatinine 1.06 09/08/2022: Potassium 4.2 BUN 44 creatinine 1.30 Renal ultrasound: Left kidney slightly below limits of normal for size. UA: Negative for nitrite. Positive leukoesterase. WBC. Bacteria many. 09/07/2022: Potassium 4.6 BUN 75 creatinine 2.51 White count 10.3 hemoglobin 12.1 platelets 390 potassium 5.2 BUN 83 creatinine 3.4 COVID 19 PCR: Detected Abdominal x-ray: Nonspecific abdomen. Assessment plan: -Acute kidney injury, likely ATN/prerenal from recent infections and decreased oral intake: Improved IV fluids. -Metabolic acidosis from kidney injury Sodium bicarbonate by mouth -Acute UTI with cystitis IV ceftriaxone. Ceftin 250 twice a day for 3 days -Persistent nausea likely from acute kidney injury: Improving -Morbid obesity BMI 43.8 Weight loss measures -Essential hypertension, currently blood pressure lower side. Hold Prinivil. Hold diuretics. -Hypothyroid Synthroid 112 g -Primary osteomyelitis multiple joints Medications when necessary Disposition: Home Patient Condition at Discharge: Fair Plan - Discharge Summary Discharge Rx Participant: No New Discharge Prescriptions: New Sodium Bicarbonate Tab 650 mg PO TID #30 tab Cefuroxime [Ceftin] 250 mg PO BID 3 Days #6 tab Continue Levothyroxine Sodium [Synthroid] 112 mcg PO DAILY Ondansetron Odt [Zofran ODT] 4 mg PO Q4H PRN PRN Reason: Nausea tiZANidine [Zanaflex] 4 mg PO TID PRN PRN Reason: Muscle Spasm Multivitamins, Thera [Multivitamin (formulary)] 1 tab PO DAILY HYDROcodone/APAP 10-325MG [[place] 10-325] 1 tab PO TID lysine HCL [l-Lysine] 1,000 mg PO DAILY Discontinued Meloxicam [Mobic] 15 mg PO DAILY lisinopriL [Prinivil] 10 mg PO DAILY Triamterene-Hctz 37.5-25Mg [Dyazide 37.5-25 Capsule] 1 cap PO DAILY Discharge Medication List HYDROcodone/APAP 10-325MG [[place] 10-325] 1 tab PO TID 09/06/22 [History] Levothyroxine Sodium [Synthroid] 112 mcg PO DAILY 09/06/22 [History] Multivitamins, Thera [Multivitamin (formulary)] 1 tab PO DAILY 09/06/22 [History] Ondansetron Odt [Zofran ODT] 4 mg PO Q4H PRN 09/06/22 [History] lysine HCL [l-Lysine] 1,000 mg PO DAILY 09/06/22 [History] tiZANidine [Zanaflex] 4 mg PO TID PRN 09/06/22 [History] Cefuroxime [Ceftin] 250 mg PO BID 3 Days #6 tab 09/09/22 [Rx] Sodium Bicarbonate Tab 650 mg PO TID #30 tab 09/09/22 [Rx] Follow up Appointment(s)/Referral(s): Baljinder Oliva DO [Primary Care Provider] - 1 Week (office closed Please call Sunday to schedule appointment ) Patient Instructions/Handouts: COVID-19 (Coronavirus Disease 2019) (DC)
== END 2022-09-09 17:06 | disposition home or self-care (01) | DRG 177 ==
LOC: EC 11:34 → 4SSUR 14:58
PROVIDERS: ADMIT Hospitalist; ATTEND Hospitalist
DX: U07.1 COVID-19 (principal); N17.0 Acute kidney failure with tubular necrosis; E87.20 Acidosis, unspecified; A08.39 Other viral enteritis; Z68.41 Body mass index [BMI] 40.0-44.9, adult; N30.00 Acute cystitis without hematuria; E66.01 Morbid (severe) obesity due to excess calories; Z28.310 Unvaccinated for COVID-19; I10 Essential (primary) hypertension; E89.0 Postprocedural hypothyroidism; M19.90 Unspecified osteoarthritis, unspecified site; M81.0 Age-related osteoporosis without current pathological fracture; G89.29 Other chronic pain; M54.50 Low back pain, unspecified; Z79.1 Long term (current) use of non-steroidal anti-inflammatories (NSAID); Z79.890 Hormone replacement therapy; Z79.891 Long term (current) use of opiate analgesic; Z79.899 Other long term (current) drug therapy; Z88.5 Allergy status to narcotic agent; Z88.2 Allergy status to sulfonamides
CPT/HCPCS: 36415; 74018; 76770; 80048; 80053; 81001; 82150; 83605; 83690; 83735; 85025; 85610; 85730; 87636; 96361; 96374; 99285